=== PATIENT | female | born 1975 | race Caucasian/White ===

== ENCOUNTER 2017-03-20 22:35 | Emergency (ER) | payer SELFPAY ==
[2017-03-20 22:35] VITALS: BMI 32.5
[2017-03-20 22:57] VITALS: BP 125/79; PULSE 86; RESP 18; TEMP 98.3; O2SAT 99
--- NOTE | 2017-03-21 00:58 | C.PDOC ---
History Of Present Illness 41 year old female who presents to the ER with a complaint of pain and swelling to the left leg since approximately 14:00 today. Patient denies abdominal pain, weakness, numbness, recent injury, heavy lifting, PMHx, or Hx of similar symptoms. Time Seen by Provider: 03/20/17 23:05 Chief Complaint (Nursing): Lower Extremity Problem/Injury History Per: Patient History/Exam Limitations: no limitations Onset/Duration Of Symptoms: Hrs Current Symptoms Are (Timing): Still Present Recent travel outside of the [place]: No Past Medical History Reviewed: Historical Data, Nursing Documentation, Vital Signs Vital Signs: Last Vital Signs Temp 98.3 F 03/20/17 22:48 Pulse 86 03/20/17 22:48 Resp 18 03/20/17 22:48 BP 125/79 03/20/17 22:48 Pulse Ox 99 03/21/17 00:58 - Medical History PMH: Diabetes - [facility] EPISIOTOMY (10/21/13) Family History: States: Unknown Family Hx - Social History Hx Alcohol Use: No Hx Substance Use: No - Immunization History Hx Tetanus Toxoid Vaccination: No Hx Influenza Vaccination: No Hx Pneumococcal Vaccination: No Review Of Systems Gastrointestinal: Negative for: Abdominal Pain Musculoskeletal: Positive for: Leg Pain Neurological: Negative for: Weakness, Numbness Physical Exam - Physical Exam Appears: Non-toxic, No Acute Distress Skin: Normal Color, Warm, Dry Head: Atraumatic, Normacephalic Oral Mucosa: Moist Gastrointestinal/Abdominal: Soft, No Tenderness Extremity: Normal ROM (x4), No Deformity, Swelling (Mild to moderate to posterior left thigh), No Other (Wounds, Abrasions) Neurological/Psych: Oriented x3, Normal Speech, Normal Cognition Gait: Steady ED Course And Treatment O2 Sat by Pulse Oximetry: 99 (Room air) Pulse Ox Interpretation: Normal Medical Decision Making Medical Decision Making: Plan: * Tylenol * Toradol On reevaluation, patient's pain has much improved; patient is able to ambulate in the ER without difficulty, will discharge home with instructions to follow up with PMD. Disposition - Disposition Referrals: Raúl Alvarado MD [Staff Provider] - Disposition: HOME/ ROUTINE Disposition Time: 00:56 Condition: FAIR Additional Instructions: Return TO THE ED at 8am for DOPPLER ULTRASOUND TO R/O DVT. Prescriptions: Naproxen [Naprosyn] 500 mg PO BID #20 tab Instructions: Leg Cramps (ED) Forms: [facility] (Congolese), Work Excuse - Clinical Impression Clinical Impression: Leg pain - Scribe Statement The provider has reviewed the documentation as recorded by the Scribe Kristofer Santizo All medical record entries made by the Augustinaibe were at my direction and personally dictated by me. I have reviewed the chart and agree that the record accurately reflects my personal performance of the history, physical exam, medical decision making, and the department course for this patient. I have also personally directed, reviewed, and agree with the discharge instructions and disposition.
== END 2017-03-21 01:02 | disposition home or self-care (01) ==
LOC: C.ER 22:35
DX: M79.605 Pain in left leg (principal)
CPT/HCPCS: 96372; 99283; J1885